=== PATIENT | female | born 2000 | race Caucasian/White ===

== ENCOUNTER 2024-06-04 08:08 | Day surgery (SDC) | payer OTHER ==
[~2024-06-04] VITALS: Ht 172.7 cm; Wt 69.4 kg
[~2024-06-04 08:08] MED LIST: PRENTAB53 PO
[2024-06-04] MEDS ORDERED: LR 1,000 ML IV SCH (08:45)
[2024-06-04] MEDS: CIPRODEX OTIC SUSP 7.5ML As Ordered ONE (09:40)
[2024-06-04] MEDS ORDERED: fentaNYL 100 MCG/2 ML INJECTION As Ordered ONE (09:44)
[2024-06-04] MEDS ORDERED: ACETAMINOPHEN 1000MG/100ML IV BAG As Ordered ONE (09:44)
[2024-06-04] MEDS ORDERED: MIDAZOLAM INJ 2MG/2ML VIAL As Ordered ONE (09:44)
[2024-06-04] MEDS ORDERED: LIDOCAINE 2% 100MG/5ML SDV (FOR ANES.) As Ordered ONE (09:44)
[2024-06-04] MEDS ORDERED: ONDANSETRON 4MG 2ML VIAL As Ordered ONE (09:44)
[2024-06-04] MEDS ORDERED: propofoL 200 MG/20 ML VIAL As Ordered ONE (09:44)
[2024-06-04] MEDS ORDERED: ONDANSETRON 4MG 2ML VIAL IV PRN (09:50)
[2024-06-04] MEDS ORDERED: oxyCODONE 5MG TAB PO PRN (09:50)
[2024-06-04] MEDS ORDERED: fentaNYL 100 MCG/2 ML INJECTION IV PRN (09:50)
[2024-06-04] MEDS ORDERED: HYDROMORPHONE HCL 0.5 MG/ 0.5 ML SYRINGE IV PRN (09:50)
[2024-06-04 10:33] VITALS: BP 108/61
[2024-06-04 10:51] VITALS: TEMP 97.5; O2SAT 100
== END 2024-06-04 11:07 | disposition home or self-care (01) ==
LOC: M SDC 08:08
PROVIDERS: ATTEND Otolaryngology
DX: H65.23 Chronic serous otitis media, bilateral (principal)
CPT/HCPCS: 69436; 81025; J0131; J1100; J2250; J2405; J3010

== ENCOUNTER → 2024-11-21 | Outpatient (CLI) | payer OTHER | LOC: M CARPUL 08:51 | PROVIDERS: ATTEND Internal Medicine | DX: R01.1 Cardiac murmur, unspecified (principal) ==